=== PATIENT | female | born 1975 | race Caucasian/White ===

== ENCOUNTER 2023-03-02 14:15 | Outpatient (CLI) | payer OTHER, SELFPAY ==
--- NOTE | ~2023-03-02 | XR_ITS ---
EXAMINATION: XR chest 2V 03/02/2023 14:32 INDICATION: Cough and shortness of breath PROCEDURE: 2 view chest COMPARISON: No prior studies for comparison. FINDINGS: The lungs are clear. The cardiomediastinal silhouette is within normal limits. There are no pleural effusions. There is no pneumothorax suspected. IMPRESSION: 1: NO ACUTE CARDIOPULMONARY DISEASE. Reviewed, dictated and finalized at location B. SYSTEMS ENGINEER
== END 2023-03-02 14:16 | disposition home or self-care (01) ==
PROVIDERS: PCP Family Medicine; Visit Provider Physician Assistant
DX: R06.02 Shortness of breath (principal); R05.9 Cough, unspecified
CPT/HCPCS: 71046

== ENCOUNTER 2023-06-19 16:30 | Emergency (ER) | payer OTHER, SELFPAY ==
[2023-06-19 17:03] VITALS: PULSE 107; RESP 16; TEMP 37.9; O2SAT 99
--- NOTE | 2023-06-19 17:35 | ED.URI ---
HPI - URI/Sore Throat General Chief Complaint: Upper Respiratory Infection Stated Complaint: Congestion/throat/headache/nausea Source: patient and RN notes reviewed Mode of arrival: ambulatory Limitations: no limitations History of Present Illness HPI Narrative: 48-year-old female presented for complaint of Nausea/vomiting, headache, body aches, sinus pressure/congestion, cough, fever/chills. onset yesterday. unable to tolerate p.o. today. Unable to take anything for symptoms. Denies sob, wheezing or lethargy. MD elicited complaint: cough Related Data Home Medications Medication Instructions Recorded Confirmed levonorgestrel 21 mcg/24 hours (8 1 device intrauterine ONCE 03/04/23 06/12/23 yrs) 52 mg intrauterine device (Mirena) Allergies Allergy/AdvReac Type Severity Reaction Status Date / Time morphine Allergy Mild itch Verified 06/12/23 09:59 Review of Systems Review of Systems: CONSTITUTIONAL: Endorses malaise, chills, sweats, fever EYES: Denies visual changes, redness, or discharge ENT: Reports rhinorrhea, congestion, sore throat CARDIOVASCULAR: Denies chest pain, palpitations, edema RESPIRATORY: Reports cough, post nasal drainage. Denies dyspnea GASTROINTESTINAL: Denies abdominal pain, reports nausea, vomiting SKIN: Denies rash or itching MUSCULOSKELETAL: Endorses myalgia NEUROLOGIC: Reports headache PMFSH Past Medical History Medical History AOM (acute otitis media) BMI 39.0-39.9,adult Dental caries Inactive cavitated caries of root of tooth Subacute sinusitis Tonsillitis, chronic Surgical History Surgical History History of section Hx of breast biopsy Family History Family History Mother Depression Hypertension Family history of osteoporosis Family history of migraine headaches Father Family history of lung cancer Grandparent Diabetes mellitus Social History Social History Social History: Significant Other Smoking status: Former smoker Tobacco type: cigarettes Second hand tobacco smoke exposure: No Smoking end date: 01/24/98 Alcohol intake: never Substance use: never Substance use type: does not use Do You Feel Safe in your Home?: Yes Lack of Transportation: No Lack of Food: Never True Current Housing: I Have Housing Concerned About Future Housing: No Difficulty Paying Gas/Electric Bills: No Difficulty Paying for Meds: No Currently Unemployed: No Education: Associate Degree Difficulty w/ Childcare or Family Care: No Living arrangements: with family Occupation/Education: occupation Gender identity (if verbalized by the patient): Female Sexual Orientation (if Verbalized by the Patient): Straight or Heterosexual Exam Narrative: GENERAL: Ill-appearing, nontoxic no acute distress. EYES: PERRLA, conjunctivae clear ENT: Mucous membranes moist. TM pearly pham with dull light reflex bilaterally; no tragal tenderness. Oropharynx erythematous tonsils 2+ without lesions or exudate, no drooling, no hoarseness, no trismus, uvula midline. No tripod positioning, muffled voice, soft palate or pharyngeal wall bulging NECK: Supple. No lymphadenopathy CHEST: Clear to auscultation, breath sounds equal. No wheezing, rhonchi, rales, or stridor. No respiratory distress, speaks in full sentences. HEART: Regular rate and rhythm. No murmur heard. SKIN: Warm, dry, no rash. NEURO: Alert and oriented x3. PSYCH: Normal mood and affect Course Course Emergency Course: Patient is aware of diagnosis, understands and agrees to treatment plan. Anticipatory guidance given. Patient agrees to follow-up as directed and is aware of reasons to seek care at the emergency department. Portions of this record may have been
[2023-06-19 17:50] VITALS: BP 135/89
== END 2023-06-19 17:50 | disposition home or self-care (01) ==
PROVIDERS: Emergency Provider Nurse Practitioner Family; PCP Family Medicine
DX: J10.1 Influenza due to other identified influenza virus with other respiratory manifestations (principal); Z20.822 Contact with and (suspected) exposure to COVID-19; Z87.891 Personal history of nicotine dependence
CPT/HCPCS: 87081; 87426; 87804; 87880; 99213; G0463

== ENCOUNTER 2023-07-01 15:10 | Outpatient (CLI) | payer OTHER, SELFPAY ==
--- NOTE | ~2023-07-01 | MM_ITS ---
EXAMINATION: MM screening piotr BI w catarina HISTORY: Screening mammogram TECHNIQUE: Craniocaudal and mediolateral oblique 3-D tomosynthesis images were obtained and synthetic 2-D images were generated. CAD analysis was submitted and interpreted. COMPARISON: 09/11/2017 bilateral diagnostic mammography and bilateral breast ultrasound examination BREAST PARENCHYMAL COMPOSITION: The breasts are heterogeneously dense, which may obscure small masses . FINDINGS: Bilateral breast biopsy markers are noted. History of bilateral benign breast biopsies. 2.5 x 3.5 mm low-density circumscribed mass with halo sign is noted in the medial subareolar area of the left breast, benign in appearance, most likely a benign cyst. Similar but smaller opacities are n oted in the posterior outer mid and upper left breast. There is no evidence of suspicious mass, calcification, or architectural distortion to suggest malign marielle in either breast. There has been no suspicious interval change. IMPRESSION: 1. No mammographic evidence of malignancy. 2. Recommend routine screening mammography in one year. BI-RADS Category 2: Benign finding(s). Reviewed, dictated and finalized at location A.
== END 2023-07-01 15:11 ==
LOC: MICIMG 15:11
PROVIDERS: PCP Physician Assistant; Visit Provider Physician Assistant
DX: Z12.31 Encounter for screening mammogram for malignant neoplasm of breast (principal)
CPT/HCPCS: 77063; 77067

== ENCOUNTER 2024-01-26 11:05 | Emergency (ER) | payer MEDICAID, SELFPAY ==
--- NOTE | ~2024-01-26 | XR_ITS ---
EXAMINATION: XR chest 2V DATE: 01/26/2024 11:22 INDICATION: Fever and cough. TECHNIQUE: Frontal and lateral views of the chest were obtained. COMPARISON: Chest 2 views 03/02/2023 FINDINGS: There is no pneumonia, pleural effusion, or pneumothorax. The heart size is normal. IMPRESSION: 1. No acute cardiopulmonary disease. Reviewed, dictated and finalized at location A.
[2024-01-26 11:10] VITALS: BP 162/94; PULSE 83; RESP 20; TEMP 36.6; O2SAT 95
[2024-01-26 11:14] VITALS: RESP 20
--- NOTE | 2024-01-26 11:15 | ED.GENADULT ---
HPI - General Adult General Chief complaint: Unspecified Stated complaint: not feeling good, no voice, cough Time Seen by Provider: 01/26/24 11:08 Source: patient Mode of arrival: ambulatory Limitations: no limitations History of Present Illness HPI narrative: This is a 48-year-old female that presents to the emergency department for cold symptoms. Ongoing over the last 4 days. Reports fever, cough, congestion, hoarseness. Denies shortness of breath. Related Data Home Medications Medication Instructions Recorded Confirmed levonorgestrel 21 mcg/24 hr (up to 1 device intrauterine ONCE 03/04/23 06/12/23 8 years) 52 mg intrauterine device (Mirena) Allergies Allergy/AdvReac Type Severity Reaction Status Date / Time morphine Allergy Mild itch Verified 06/12/23 09:59 Review of Systems Review of Systems: CONSTITUTIONAL: Reports fever ENT: Reports rhinorrhea, congestion, sore throat RESPIRATORY: Reports cough. Denies dyspnea. All systems reviewed & are unremarkable except as noted in HPI and below PMFSH Past Medical History Medical History AOM (acute otitis media) BMI 39.0-39.9,adult Dental caries Inactive cavitated caries of root of tooth Subacute sinusitis Tonsillitis, chronic Surgical History Surgical History History of section Hx of breast biopsy Family History Family History Mother Depression Hypertension Family history of osteoporosis Family history of migraine headaches Father Family history of lung cancer Grandparent Diabetes mellitus Social History Social History Social History: Significant Other Smoking status: Former smoker Tobacco type: cigarettes Second hand tobacco smoke exposure: No Smoking end date: 01/24/98 Alcohol intake: never Substance use: never Substance use type: does not use Do You Feel Safe in your Home?: Yes Lack of Transportation: No Lack of Food: Never True Current Housing: I Have Housing Concerned About Future Housing: No Difficulty Paying Gas/Electric Bills: No Difficulty Paying for Meds: No Currently Unemployed: No Education: Associate Degree Difficulty w/ Childcare or Family Care: No Living arrangements: with family Occupation/Education: occupation Gender identity (if verbalized by the patient): Female Sexual Orientation (if Verbalized by the Patient): Straight or Heterosexual Exam Narrative: GENERAL: Well-appearing, well-nourished, and in no acute distress. HEAD: Normocephalic, atraumatic. EYES: EOMI. ENT: Nares clear, no rhinorrhea or epistaxis. Mucous membranes moist. Oropharynx without tonsillar hypertrophy exudate or other lesions. Bilateral TMs pearly pham non-bulging NECK: Supple. No adenopathy or masses. CHEST: No respiratory distress. Rales in the right lower lobe. No wheezes or rhonchi HEART: Regular rate and rhythm. No murmur heard. Normal peripheral pulses. EXTREMITIES: Normal range of motion. No edema. SKIN: Warm, dry, no rash. NEURO: No focal deficits. Alert and oriented x3. PSYCH: Normal mood and affect Course Course Emergency Course: Patient updated on workup and agrees with plan of care Vital Signs Vital signs: Vital Signs Temperature 98 F 01/26/24 11:10 Pulse Rate 83 01/26/24 11:10 Respiratory Rate 20 01/26/24 11:10 Blood Pressure 162/94 H 01/26/24 11:10 Pulse Oximetry 95 01/26/24 11:10 Oxygen Delivery Room Air 01/26/24 11:10 Temperature 98 F 01/26/24 11:10 Pulse Rate 83 01/26/24 11:10 Respiratory Rate 20 01/26/24 11:14 Blood Pressure 162/94 H 01/26/24 11:10 Pulse Oximetry 95 01/26/24 11:10 Oxygen Delivery Room Air 01/26/24 11:10 Medical Decision Making MDM Narrative Medical decision making narr
[2024-01-26 12:05] LABS: Influenza A QL RT-PCR Negative (Negative); Influenza B QL RT-PCR Negative (Negative); RSV RNA, RT-PCR Negative (Negative); SARS-CoV-2 RNA PCR Negative (Negative)
[2024-01-26 12:36] VITALS: PULSE 88; RESP 15; TEMP 36.9; O2SAT 99
== END 2024-01-26 12:35 | disposition home or self-care (01) ==
PROVIDERS: Emergency Provider Physician Assistant; PCP Nurse Practitioner Family
DX: J20.9 Acute bronchitis, unspecified (principal); Z20.822 Contact with and (suspected) exposure to COVID-19; Z97.5 Presence of (intrauterine) contraceptive device; Z87.891 Personal history of nicotine dependence; Z79.899 Other long term (current) drug therapy
CPT/HCPCS: 71046; 87637; 99283

== ENCOUNTER 2024-09-27 08:58 | Outpatient (CLI) | payer OTHER, SELFPAY ==
--- NOTE | ~2024-09-27 | XR_ITS ---
EXAM/ PROCEDURE: XR shoulder RT min 2V - 09/27/2024 9:00 CDT HISTORY: 49 years old Female with PAIN, JOINT, SHOULDER, RIGHT COMPARISON: None available TECHNIQUE: Four view(s) FINDINGS/ IMPRESSION: There are no fractures or dislocations.Joint spaces are within normal limits Reviewed, dictated and finalized at location A.
== END 2024-09-27 08:59 | disposition home or self-care (01) ==
PROVIDERS: PCP Nurse Practitioner Family; Visit Provider Nurse Practitioner Family
DX: M25.511 Pain in right shoulder (principal)
CPT/HCPCS: 73030

== ENCOUNTER 2025-03-13 07:43 | Outpatient (CLI) | payer OTHER, SELFPAY ==
--- NOTE | ~2025-03-13 | MR_ITS ---
EXAMINATION: MR shoulder RT wo con DATE: 03/13/2025 08:14 INDICATION: Right shoulder pain TECHNIQUE: Magnetic resonance imaging (MRI) of the right shoulder was performed without intravenous contrast. Sequences included axial PD-weighted FS FSE, coronal oblique PD-weighted FS FSE, coronal oblique T2-weighted FS FSE, sagittal PD-weighted FS FSE, and sagittal T1-weighted SE. COMPARISON: None. FINDINGS: Coracoacromial arch: The acromion undersurface is flat in morphology (type I). The coracoacromial ligament is normal. Minimal acromioclavicular osteoarthritis. Rotator cuff: Mild supraspinatus and subscapularis tendinopathy. There is a small longitudinal split tear measuring approximately 2 cm medial collateral along the otherwise intact appearing fibers at the junction of the cephalad to mid thirds of the distal tendon. Infraspinatus and teres minor tendons are normal. Normal rotator cuff muscle bulk and signal. Biceps tendon, glenoid labrum and glenohumeral cartilage: Long head of the biceps tendon is normal. Glenoid labrum is normal. Glenohumeral cartilage is normal. Fluid: Small glenohumeral joint effusion at the axillary recess. There is proportional extension of a small amount of fluid caudally along the long head biceps tendon sheath. No loose osteochondral bodies. No abnormal fluid signal in the subacromial/subdeltoid bursa to suggest bursitis. Bones: Normal marrow signal with no edema, fracture or abnormal marrow replacing process. IMPRESSION: 1. Mild supraspinatus and subscapularis tendinopathy with small longitudinal split tear along the distal subscapularis tendon. Reviewed, dictated and finalized at location A. IFF OFFICER IMPRESSION: 1. Mild supraspinatus and subscapularis tendinopathy with small longitudinal sp lit tear along the distal subscapularis tendon.
== END 2025-03-13 07:44 | disposition home or self-care (01) ==
PROVIDERS: PCP Nurse Practitioner Family; Visit Provider Nurse Practitioner Family
DX: M67.813 Other specified disorders of tendon, right shoulder (principal); S46.811A Strain of other muscles, fascia and tendons at shoulder and upper arm level, right arm, initial encounter; X58.XXXA Exposure to other specified factors, initial encounter
CPT/HCPCS: 73221